=== PATIENT | female | born 1995 | race Caucasian/White ===

== ENCOUNTER 2018-02-24 12:14 | Emergency (ER) | payer OTHER ==
[2018-02-24 12:24] VITALS: BMI 19.5
[2018-02-24] MEDS ORDERED: METOCLOPRAMIDE HCL INJECTION 10 MG/2 ML VIAL IVPB ONE (13:06)
[2018-02-24] MEDS ORDERED: SODIUM CHLORIDE 0.9% 1000 ML INFUS.BAG IV ONE (13:06)
[2018-02-24] MEDS ORDERED: METOCLOPRAMIDE HCL INJECTION 10 MG/2 ML VIAL ONE (13:14)
[2018-02-24 13:20] LABS: BASO % 0.5 % (0-2.0); EOS % 0.2 % (0-4.5); HEMATOCRIT 37.4 % (32.4-45.2); HEMOGLOBIN 12.5 GM/dL (10.7-15.3); LYMPH % 8.3 % (8-40); MCH 27.7 pg (25.7-33.7); MCHC 33.5 g/dl (32.0-36.0); MEAN CELL VOLUME 82.5 fl (80-96); MEAN PLT VOLUME 8.9 fl (7.5-11.1); MONO % 4.9 % (3.8-10.2); NEUT % 86.1 % (42.8-82.8); PLATELET COUNT 187 K/MM3 (134-434); RBC 4.53 M/mm3 (3.60-5.2); RDW 13.3 % (11.6-15.6); WHITE BLOOD COUNT 9.6 K/mm3 (4.0-10.0)
[2018-02-24 14:06] LABS: URINE APPEARANCE CLOUDY; URINE BILIRUBIN NEGATIVE (<2.0 mg/dL); URINE BLOOD NEGATIVE (NEGATIVE); URINE COLOR DKYELLOW; URINE GLUCOSE (UA) NEGATIVE (NEGATIVE); URINE KETONE 2+ (NEGATIVE); URINE LEUK ESTERASE TRACE (NEGATIVE); URINE NITRITE NEGATIVE (NEGATIVE); URINE UROBILINOGEN NEGATIVE mg/dL (0.2-1.0)
[2018-02-24 14:09] LABS: URINE PROTEIN 2+ (NEGATIVE)
[2018-02-24 14:10] LABS: EPI CELLS FEW /HPF (FEW); URINE BACTERIA MODERATE /hpf (NONE SEEN); URINE MUCUS MANY
[2018-02-24 14:14] LABS: ALBUMIN 4.5 g/dl (3.4-5.0); ANION GAP 13 (8-16); BILIRUBIN,TOTAL 0.5 mg/dL (0.2-1.0); BLOOD UREA NITROGEN 8 mg/dL (7-18); CALCIUM 9.7 mg/dL (8.5-10.1); CHLORIDE 100 mmol/L (98-107); CO2 24 mmol/L (21-32); CREATININE 0.6 mg/dL (0.55-1.02); GLUCOSE,RANDOM 77 mg/dL (74-106); POTASSIUM 4.2 mmol/L (3.5-5.1); SGOT/AST 20 U/L (15-37); SGPT/ALT 26 U/L (12-78); SODIUM 137 mmol/L (136-145); TOT PROT 7.9 g/dl (6.4-8.2)
[2018-02-24 14:30] LABS: ALK PHOS 45 U/L (45-117)
--- NOTE | 2018-02-24 14:53 | PDOC ---
History of Present Illness <Lynn Izaguirre - Last Filed: 02/24/18 17:29> - General History Source: Patient Exam Limitations: No Limitations - History of Present Illness Initial Comments: 02/24/18 14:51 22-year-old female currently about 6 weeks with an LMP of January 09 here today complaining of intractable nausea and vomiting. Patient states she is vomiting daily too many times to count today was feeling lightheaded. Denies any abdominal pain no bleeding or loss of fluid no other complaints has been unable to tolerate any by mouth today is scheduled to follow up at the [facility] but has not had her first visit yet. No fevers chills was recently started on Keflex for a UTI she has been unable to take <Alejandra Vidales - Last Filed: 02/24/18 18:11> - General Chief Complaint: Nausea/Vomiting Stated Complaint: NAUSEA (2 MONTHS ) Past History <Lynn Izaguirre - Last Filed: 02/24/18 17:29> - Past Medical History Asthma: Yes COPD: No - Reproductive History Is Patient Now?: Yes (approx 6 wks) (#): 2 Para: 0 Spontaneous : 1 - Suicide/Smoking/Psychosocial Hx Smoking History: Never smoked Have you smoked in the past 12 months: No Information on smoking cessation initiated: No Hx Alcohol Use: No Drug/Substance Use Hx: No Substance Use Type: None <Alejandra Vidales - Last Filed: 02/24/18 18:11> - Past Medical History Allergies/Adverse Reactions: Allergies Allergy/AdvReac Type Severity Reaction Status Date / Time No Known Allergies Allergy Verified 02/19/18 02:58 Home Medications: Ambulatory Orders Cephalexin [Keflex] 500 mg PO BID 7 Days #13 capsule MDD 2 Tab 02/19/18 Vit 93/Iron Fum/Folic [ Formula Tablet] 1 each PO DAILY Metoclopramide HCl [Reglan] 10 mg PO TID PRN #20 tablet 02/24/18 Metoclopramide Oral Soln [Reglan *Liquid*] 10 mg PO TID PRN #120 udc MDD 3 doses 02/24/18 Review of Systems - Review of Systems Constitutional: No: Chills, Diaphoresis, Fever HEENTM: No: Eye Pain Respiratory: No: Orthopnea, Shortness of Breath Cardiac (ROS): No: Syncope ABD/GI: Yes: Vomiting. No: Diarrhea : No: Burning, Dysuria Musculoskeletal: No: Back Pain Integumentary: No: Bruising All Other Systems: Reviewed and Negative <Alejandra Vidales - Last Filed: 02/24/18 18:11> *Physical Exam - Vital Signs Last Vital Signs Temp Pulse Resp BP Pulse Ox 98.0 F 102 H 18 95/56 100 02/24/18 12:17 02/24/18 16:15 02/24/18 16:15 02/24/18 16:15 02/24/18 16:15 <Izaguirre,Giomilsy - Last Filed: 02/24/18 17:29> - Vital Signs Last Vital Signs Temp Pulse Resp BP Pulse Ox 98.0 F 120 H 18 109/64 100 02/24/18 12:17 02/24/18 12:17 02/24/18 12:17 02/24/18 12:17 02/24/18 12:17 - Physical Exam General Appearance: Yes: Nourished HEENT: positive: Normal ENT Inspection Respiratory/Chest: positive: Lungs Clear, Normal Breath Sounds. negative: Chest Tender Cardiovascular: positive: Regular Rhythm, Regular Rate, S1, S2 Gastrointestinal/Abdominal: positive: Normal Bowel Sounds, Flat, Soft. negative : Tender Extremity: positive: Normal Capillary Refill Integumentary: positive: Normal Color, Dry, Warm Neurologic: positive: Fully Oriented, Alert, Normal Mood/Affect <Alejandra Vidales - Last Filed: 02/24/18 18:11> ED Treatment Course - LABORATORY CBC & Chemistry Diagram: 02/24/18 13:08 02/24/18 13:08 - ADDITIONAL ORDERS Additional order review: Laboratory Results 02/24/18 02/24/18 13:42 13:08 Sodium 137 Potassium 4.2 Chloride 100 Carbon Dioxide 24 Anion Gap 13 BUN 8 Creatinine 0.6 Creat Clearance w eGFR > 60 Random Glucose 77 Calcium 9.7 Total Bilirubin 0.5 AST 20 ALT 26 Alkaline Phosphatase 45 Total Protein 7.9 Albumin 4.5 Beta HCG, Quant 982457.8 Urine Color Dkyellow Urine Appearance Cloudy Urine pH 7.0 Ur Specific [place] 1.024 Urine Protein 2+ H Urine Glucose (UA) Negative Urine Ketones 2+ H Urine Blood Negative Urine Nitrite Negative Urine Bilirubin Negative Urine Urobilinogen Negative Ur Leukocyte Esterase Trace Urine WBC (Auto) 8 Urine RBC (Auto) 4 Ur Epithelial Cells Few Urine Bacteria Moderate Urine Mucus Many 02/24/18 13:08 RBC 4.53 MCV 82.5 MCHC 33.5 RDW 13.3 MPV 8.9 Neutrophils % 86.1 H Lymphocytes % 8.3 D Monocytes % 4.9 Eosinophils % 0.2 Basophils % 0.5 - RADIOLOGY Radiograph Interpretation: 02/24/18 17:29 EXAM: Transvaginal US INTERPRETED BY: Dr. Hernandez REVIEWED BY: Dr. Vidales IMPRESSION: The uterus is retroverted and measures 9.7 x 7.0 x 5.8 cm. There is an intrauterine gestational sac containing pole and yolk sac. Mims-rump length of the pole measures 1.08 cm, which corresponds to an estimated gestational age of 7 weeks and 1 day. Average heart rate measures 143 bpm. The ovaries are normal size with arterial and venous flow. The right ovary measures 2.8 x 3.4 x 1.4 cm. The left ovary measures 2.0 x 1.8 x 1.3 cm. No free fluid identified in the cul-de- sac. SUMMARY: Single live intrauterine with biometry as above, concordant with dates utilizing the provided LMP. - Medications Given in the ED: ED Medications Discontinued Medications Generic Name Dose Route Start Last Admin Trade Name Freq PRN Reason Stop Dose Admin Metoclopramide HCl 10 mg 02/24/18 13:06 02/24/18 13:29 Reglan Injection - IVPB 02/24/18 13:07 10 mg ONCE ONE Administration Sodium Chloride 1,000 ml 02/24/18 13:06 02/24/18 13:29 Normal Saline - IV 02/24/18 13:07 1,000 ml ONCE ONE Administration <Lynn Izaguirre - Last Filed: 02/24/18 17:29> - LABORATORY CBC & Chemistry Diagram: 02/24/18 13:08 02/24/18 13:08 - ADDITIONAL ORDERS Additional order review: Laboratory Results 02/24/18 02/24/18 13:42 13:08 Sodium 137 Potassium 4.2 Chloride 100 Carbon Dioxide 24 Anion Gap 13 BUN 8 Creatinine 0.6 Creat Clearance w eGFR > 60 Random Glucose 77 Calcium 9.7 Total Bilirubin 0.5 AST 20 ALT 26 Alkaline Phosphatase 45 Total Protein 7.9 Albumin 4.5 Beta HCG, Quant 240685.8 Urine Color Dkyellow Urine Appearance Cloudy Urine pH 7.0 Ur Specific [place] 1.024 Urine Protein 2+ H Urine Glucose (UA) Negative Urine Ketones 2+ H Urine Blood Negative Urine Nitrite Negative Urine Bilirubin Negative Urine Urobilinogen Negative Ur Leukocyte Esterase Trace Urine WBC (Auto) 8 Urine RBC (Auto) 4 Ur Epithelial Cells Few Urine Bacteria Moderate Urine Mucus Many 02/24/18 13:08 RBC 4.53 MCV 82.5 MCHC 33.5 RDW 13.3 MPV 8.9 Neutrophils % 86.1 H Lymphocytes % 8.3 D Monocytes % 4.9 Eosinophils % 0.2 Basophils % 0.5 - RADIOLOGY Radiology Studies Ordered: Category Date Time Status TRANSVAGINAL US PREG [US] Stat Ultrasound 02/24/18 14:44 Ordered - Medications Given in the ED: ED Medications Discontinued Medications Generic Name Dose Route Start Last Admin Trade Name Freq PRN Reason Stop Dose Admin Metoclopramide HCl 10 mg 02/24/18 13:06 02/24/18 13:29 Reglan Injection - IVPB 02/24/18 13:07 10 mg ONCE ONE Administration Sodium Chloride 1,000 ml 02/24/18 13:06 02/24/18 13:29 Normal Saline - IV 02/24/18 13:07 1,000 ml ONCE ONE Administration <Alejandra Vidales - Last Filed: 02/24/18 18:11> Medical Decision Making - Medical Decision Making 02/24/18 15:55 differential: hyperemisis, dehydration, molar , acidosis, worsening uti , plan fluics, labs us tvus evaluate . antiemetics, trial po. if unable to tolerate PO. will admit. 02/24/18 17:24 lab unremarkable. TVUS with live IUP 7 weeks one day. yolk sac and pole. toleratling PO in ED. urine partially treated as pt has been on keflex. culture sent. will dc with rx for reglan to help nausea. and followup as scheduled. <Alejandra Vidales - Last Filed: 02/24/18 18:11> *DC/Admit/Observation/Transfer - Attestations Scribe Attestion: 03/28/18 17:30 Documentation prepared by Lynn Izaguirre, acting as medical imaging technician for Alejandra Vidales MD. <Lynn Izaguirre - Last Filed: 02/24/18 17:29> <Alejandra Vidales - Last Filed: 02/24/18 18:11> Diagnosis at time of Disposition: Hyperemesis, Dehydration - Discharge Dispostion Disposition: HOME Condition at time of disposition: Improved - Prescriptions Prescriptions: Metoclopramide HCl [Reglan] 10 mg PO TID PRN #20 tablet PRN Reason: Nausea Metoclopramide Oral Soln [Reglan *Liquid*] 10 mg PO TID PRN #120 udc MDD 3 doses PRN Reason: Nausea - Patient Instructions Printed Discharge Instructions: Hyperemesis Gravidarum, DI for Vomiting -- Adult Additional Instructions: you can take reglan 10 mg every 6 hrs as needed for vomiting or nausea. bland fluids, and solids. follow up with your document control assistant as scheduled. you are currently 7 weeks and 2 days based on todays ultrasound. return for any problems or concerns.
[2018-02-24 18:24] VITALS: BP 106/73; PULSE 89; TEMP 98.2
== END 2018-02-24 18:24 | disposition home or self-care (01) ==
LOC: JER 12:14
DX: O26.891 Other specified pregnancy related conditions, first trimester (principal); Z3A.01 Less than 8 weeks gestation of pregnancy; O21.0 Mild hyperemesis gravidarum; E86.0 Dehydration
CPT/HCPCS: 36415; 76817-TC; 80053; 81003; 81015; 84702; 85025; 87086; 99284-25; J7030

== ENCOUNTER 2018-03-21 09:38 | Emergency (ER) | payer OTHER ==
[2018-03-21 09:50] VITALS: TEMP 98.1; BMI 18.7
[2018-03-21 10:31] LABS: URINE APPEARANCE SLCLOUDY; URINE BILIRUBIN NEGATIVE (<2.0 mg/dL); URINE BLOOD 1+ (NEGATIVE); URINE COLOR YELLOW; URINE GLUCOSE (UA) NEGATIVE (NEGATIVE); URINE KETONE 1+ (NEGATIVE); URINE LEUK ESTERASE NEGATIVE (NEGATIVE); URINE NITRITE NEGATIVE (NEGATIVE)
[2018-03-21 10:32] LABS: URINE PROTEIN 1+ (NEGATIVE)
[2018-03-21 10:33] LABS: EPI CELLS RARE /HPF (FEW); URINE BACTERIA RARE /hpf (NONE SEEN); URINE HYALINE CAST 4 /lpf; URINE MUCUS MANY
[2018-03-21 10:34] LABS: BASO % 0.3 % (0-2.0); EOS % 0.8 % (0-4.5); HEMOGLOBIN 12.5 GM/dL (10.7-15.3); LYMPH % 10.8 % (8-40); MCH 28.2 pg (25.7-33.7); MCHC 33.8 g/dl (32.0-36.0); MEAN CELL VOLUME 83.5 fl (80-96); MEAN PLT VOLUME 8.5 fl (7.5-11.1); MONO % 4.7 % (3.8-10.2); NEUT % 83.4 % (42.8-82.8); PLATELET COUNT 164 K/MM3 (134-434); RBC 4.43 M/mm3 (3.60-5.2); WHITE BLOOD COUNT 8.9 K/mm3 (4.0-10.0)
--- NOTE | 2018-03-21 10:34 | PDOC ---
History of Present Illness - General Stated Complaint: SPOTTING (9 WKS ) - History of Present Illness Initial Comments: 03/21/18 10:26 22yo F (miscarriage 07/2017 @ 4 weeks), currently 9 weeks , asthma presents to the ED with 1 episode of vaginal spotting this morning. Reports she saw dark red blood in her underwear when she woke up, no bleeding since. She denies abd pain, N/V, dizziness. She was concerned because she does not want to have a miscarriage, although last time reports she had much more bleeding and cramping. Denies headache, CP, SOB. Denies dysuria, frequency, urgency, F/C. Has first OB appt 03/25. Past History - Past Medical History Allergies/Adverse Reactions: Allergies Allergy/AdvReac Type Severity Reaction Status Date / Time No Known Allergies Allergy Verified 03/21/18 09:48 Home Medications: Ambulatory Orders Vit 93/Iron Fum/Folic [ Formula Tablet] 1 each PO DAILY Asthma: Yes COPD: No Other medical history: miscarriage 08/17 at 4 weeks - Reproductive History Is Patient Now?: Yes (9 weeks) (#): 2 Para: 0 Spontaneous : 1 - Suicide/Smoking/Psychosocial Hx Smoking History: Never smoked Have you smoked in the past 12 months: No Hx Alcohol Use: No Drug/Substance Use Hx: No Substance Use Type: None Review of Systems - Review of Systems Comments:: 03/21/18 10:41 GENERAL/CONSTITUTIONAL: No fever or chills. No weakness. HEAD, EYES, EARS, NOSE AND THROAT: No change in vision. No ear pain or discharge. No sore throat. GASTROINTESTINAL: No nausea, vomiting, diarrhea or constipation. GENITOURINARY: No dysuria, frequency, or change in urination. +vaginal spotting CARDIOVASCULAR: No chest pain or shortness of breath. RESPIRATORY: No cough, wheezing, or hemoptysis. MUSCULOSKELETAL: No joint or muscle swelling or pain. No neck or back pain. SKIN: No rash NEUROLOGIC: No headache, vertigo, loss of consciousness, or change in strength/ sensation. ENDOCRINE: No increased thirst. No abnormal weight change. HEMATOLOGIC/LYMPHATIC: No anemia, easy bleeding, or history of blood clots. ALLERGIC/IMMUNOLOGIC: No hives or skin allergy. *Physical Exam - Vital Signs Last Vital Signs Temp Pulse Resp BP Pulse Ox 98.1 F 107 H 20 118/62 100 03/21/18 09:45 03/21/18 09:45 03/21/18 09:45 03/21/18 09:45 03/21/18 09:45 - Physical Exam Comments: 03/21/18 10:41 GENERAL: Awake, alert, and fully oriented, in no acute distress HEAD: No signs of trauma EYES: PERRLA, EOMI, sclera anicteric, conjunctiva clear ENT: Auricles normal inspection, hearing grossly normal, nares patent, oropharynx clear without exudates. Moist mucosa NECK: Normal ROM, supple, no lymphadenopathy, JVD, or masses LUNGS: Breath sounds equal, clear to auscultation bilaterally. No wheezes, and no crackles HEART: Regular rate and rhythm, normal S1 and S2, no murmurs, rubs or gallops ABDOMEN: Soft, nontender, normoactive bowel sounds. No guarding, no rebound. No masses IN FILE OPERATOR: Normal external genitalia, +dark blood in vaginal vault, os is closed, no midline or adnexal ttp EXTREMITIES: Normal range of motion, no edema. No clubbing or cyanosis. No cords, erythema, or tenderness NEUROLOGICAL: Normal speech, cranial nerves intact, negative pronator drift, 5/ 5 strength in all 4 extremities, normal sensation to light touch in all 4 extremities, normal cerebellar exam, normal gait, normal reflexes and tone SKIN: Warm, Dry, normal turgor, no rashes or lesions noted. ED Treatment Course - LABORATORY CBC & Chemistry Diagram: 03/21/18 10:15 03/21/18 10:15 Medical Decision Making - Medical Decision Making 03/21/18 10:44 22-year-old female presents emergency Department with vaginal spotting. Vitals initially with tachycardia to 106, on my exam heart rate 94. Pelvic exam with closed os and dark blood in vaginal vault. Likely threatened . Will check labs, urinalysis and transvaginal ultrasound and reassess. 03/21/18 12:59 No further bleeding in ED. Labs wnl. US with intrauterine 11 week preg with FHR 176. B HCG pretty elevated for estimated age - no evidence molar preg on US. Discussed with patient that this must be repeated during her scheduled visit on 03/25 with OB. Blood type is O-, pt given rhogam, discussed with pt any time she bleeds or has any trauma she needs O-. She expressed understanding. Rpt vitals wnl. UA with some bacteria, will treat with macrobid (prev cx neg). UCx pending. Pt feels well, requests DC home. I discussed the physical exam findings, ancillary test results and final diagnoses with the patient. I answered all of the patient's questions. The patient was satisfied with the care received and felt comfortable with the discharge plan and treatment plan. The patient will call their primary care physician within 24 hours to arrange follow-up and will return to the Emergency Department with any new, persistent or worsening symptoms. *DC/Admit/Observation/Transfer Diagnosis at time of Disposition: Threatened - Discharge Dispostion Disposition: HOME Condition at time of disposition: Stable Admit: No - Referrals Referrals: Shanae Putnam MD [Primary Care Provider] - - Patient Instructions Printed Discharge Instructions: DI for Threatened Additional Instructions: As discussed, follow-up with your OB doctor on March 25 as scheduled. Make sure your OB doctor repeats your beta hCG levels at that time as they were elevated in the emergency department. Take your antibiotics as prescribed. Return to the emergency department if you have any new, worsening or concerning symptoms. - Post Discharge Activity - Attestations Physician Attestion: 03/21/18 13:12 I, Dr. Eve Batista MD, attest that this document has been prepared under my direction and personally reviewed by me in its entirety. I further attest, that it accurately reflects all work, treatment, procedures and medical decision -making performed by me.
[2018-03-21 10:39] LABS: INR 1.05 (0.82-1.09); PROTHROMBIN TIME (PATIENT) 11.9 SEC (9.98-11.88)
[2018-03-21 10:42] LABS: ACTIVATED PTT 24.6 SECONDS (26.9-34.4)
[2018-03-21 10:56] LABS: ALBUMIN 4.2 g/dl (3.4-5.0); ANION GAP 11 (8-16); BILIRUBIN,TOTAL 0.3 mg/dL (0.2-1.0); BLOOD UREA NITROGEN 5 mg/dL (7-18); CALCIUM 9.7 mg/dL (8.5-10.1); CHLORIDE 103 mmol/L (98-107); CO2 24 mmol/L (21-32); CREATININE 0.6 mg/dL (0.55-1.02); GLUCOSE,RANDOM 81 mg/dL (74-106); POTASSIUM 3.6 mmol/L (3.5-5.1); SGOT/AST 25 U/L (15-37); SGPT/ALT 35 U/L (12-78); SODIUM 138 mmol/L (136-145)
[2018-03-21 10:59] LABS: ALK PHOS 41 U/L (45-117)
[2018-03-21] MEDS ORDERED: RHO(D) IMMUNE GLOBULIN 1,500 UNIT DISP.SYRIN IM ONE (12:28)
[2018-03-21 13:07] VITALS: BP 108/73; PULSE 89
== END 2018-03-21 13:44 | disposition home or self-care (01) ==
LOC: JER 09:38
PROC: 3E0234Z Introduction of Serum, Toxoid and Vaccine into Muscle, Percutaneous Approach (ICD-10-PCS; principal; 2018-03-21)
DX: O26.891 Other specified pregnancy related conditions, first trimester (principal); O20.0 Threatened abortion; Z3A.11 11 weeks gestation of pregnancy; O36.0910 Maternal care for other rhesus isoimmunization, first trimester, not applicable or unspecified
CPT/HCPCS: 36415; 76801-TC; 80053; 81003; 81015; 84702; 85025; 85610; 85730; 86850; 86900; 86901; 86999; 87086; 96372; 99283-25; J1561

== ENCOUNTER 2018-05-14 06:43 | Emergency (ER) | payer OTHER ==
[2018-05-14 06:46] VITALS: BMI 27.4
[2018-05-14] MEDS ORDERED: ACETAMINOPHEN 325 MG TABLET (FP) PO ONE (07:21)
--- NOTE | 2018-05-14 07:24 | PDOC ---
History of Present Illness - General Chief Complaint: Back Pain Stated Complaint: BACK PAIN,4 MONTHS Time Seen by Provider: 05/14/18 07:06 History Source: Patient Exam Limitations: No Limitations - History of Present Illness Initial Comments: The patient is a 22 year old female A1 (currently 17 weeks , miscarrage 08/16) with a past medical history of scoliosis, asthma, and allergies who presents to the Emergency department with right flank/back pain for 2 days. The patient reports that her pain began yesterday and has been progressively worsening. She describes her back pain as intermitent 8/10 in severity with exacerbating episodes lasting 1-2 minutes. The patient reports that her pain is exacerbated when walking and notes that she has been walking more recently to maintain a healthy pregancy. She reports that her current pain feels similar to the pain she experiences secondary to her scoliosis. She denies numbness and tingling of her extremities. She denies any chest pain, cough, sob, n/v. She denies fever, chills, nausea, vomiting. She denies diarrhea, dysuria, and vaginal bleeding or discharge Past History - Past Medical History Allergies/Adverse Reactions: Allergies Allergy/AdvReac Type Severity Reaction Status Date / Time seafood Allergy Uncoded 05/14/18 06:45 Home Medications: Ambulatory Orders Vit 93/Iron Fum/Folic [ Formula Tablet] 1 each PO DAILY Albuterol Sulfate Inhaler - [Ventolin HFA Inhaler -] 1 - 2 inh IH Q4H PRN Fluticasone Propionate [Flovent Diskus] 100 mcg IH BID 05/14/18 Montelukast Na [Singulair -] 10 mg PO HS 05/14/18 Asthma: Yes COPD: No Other medical history: O neg blood type - Reproductive History (#): 2 Para: 0 Spontaneous : 1 - Suicide/Smoking/Psychosocial Hx Smoking History: Never smoked Have you smoked in the past 12 months: No Information on smoking cessation initiated: No Hx Alcohol Use: No Drug/Substance Use Hx: No Substance Use Type: None Review of Systems - Review of Systems Able to Perform ROS?: Yes Comments:: CONSTITUTIONAL: No reported: Fever, Chills, Diaphoresis, Generalized Weakness, Malaise, Loss of Appetite HEENT: No reported: Rhinorrhea, Nasal Congestion, Throat Pain, Throat Swelling, Difficulty Swallowing, Mouth Swelling, Ear Pain, Eye Pain, Visual Changes CARDIOVASCULAR: No reported: Chest Pain, Syncope, Palpitations, Irregular Heart Rate, Lightheadedness, Peripheral Edema RESPIRATORY: No reported: Cough, Shortness of Breath, SOB with Exertion, Orthopnea, Wheezing , Stridor, Hemoptysis GASTROINTESTINAL: No reported: Abdominal pain, Abdominal Distension, Nausea, Vomiting, Diarrhea, Constipation, Melena, Hematochezia GENITOURINARY: No reported: Dysuria, Frequency, Urgency, Hesitancy, Flank Pain, Genital Pain MUSCULOSKELETAL: (+) Right flank/back pain. No reported: Arthralgia, Joint Swelling, Neck Pain SKIN: No reported: Rash, Itching, Pallor HEMEATOLOGIC/IMMUNOLOGIC: No reported: Easy Bleeding, Easy Bruising, Lymphadenopathy, Frequent infections ENDOCRINE: No reported: Unexplained Weight Gain, Unexplained Weight Loss, Heat Intolerance , Cold Intolerance NEUROLOGIC: No reported: Headache, Focal Weakness, Paresthesias, Vertigo, Lightheadedness, Unsteady Gait, Seizure, Mental Status Changes, Incontinence PSYCHIATRIC: No reported: Anxiety, Depression *Physical Exam - Vital Signs Last Vital Signs Temp Pulse Resp BP Pulse Ox 98.5 F 87 20 112/71 100 05/14/18 06:45 05/14/18 06:45 05/14/18 06:45 05/14/18 06:45 05/14/18 06:45 - Physical Exam Comments: GENERAL: The patient is awake, alert, and fully oriented, Nontoxic - in no acute distress. HEAD: Normocephalic, atraumatic. EYES: extraocular movements intact, sclera anicteric, conjunctiva clear. ENT: Normal voice, Moist mucous membranes. NECK: Normal range of motion, supple LUNGS: Breath sounds equal, clear to auscultation bilaterally. No wheezes, no rhonchi, no rales. HEART: Regular rate and rhythm, without murmur, rub or gallop. ABDOMEN:Soft, nontender, +gravid abdomen to umbilicus, EXTREMITIES: Normal range of motion, no edema. BACK: mild tenderness to the L lumbar tenderness NEUROLOGICAL: No facial assymetry, Normal speech, PSYCH: Normal mood, normal affect. SKIN: Warm, Dry, normal turgor, Medical Decision Making - Medical Decision Making 05/14/18 07:22 22y F no pmhx at 17 weeks gestation presents with complaint of R flank pain radiating down the back/groin that is intermittent lasting approx 1-2 min before remitting and seems exacerbated by movements without n/v, f/c, hematuria , dysuria, diarrhea, vag bleeding, numbness/tingling/weakness. pt seeing [facility] lim for care, has prior confirmatory US on exam pt in no distress with mild reproducible tenderness on her R lower back suspect msk, consider possible kidney stones will give tylenol will ck UA to r/o hematuria 05/14/18 08:51 The patient's UA is negative for blood suspect her pain secondary to muscle spasm Will have the patient any Tylenol, heat for her sore muscles. Rest for the next several days I discussed the physical exam findings, ancillary test results and final diagnoses with the patient. I answered all of the patient's questions. The patient was satisfied with the care received and felt comfortable with the discharge plan and treatment plan. The patient will call their primary care physician within 24 hours to arrange follow-up and will return to the Emergency Department with any new, persistent or worsening symptoms. A portion of this note was documented by scribe services under my direction. I have reviewed the details of the note, within reason, and agree with the documentation with the following case summary and management plan written by me *DC/Admit/Observation/Transfer Diagnosis at time of Disposition: Back spasm - Discharge Dispostion Disposition: HOME Condition at time of disposition: Improved Decision to Admit order: No - Referrals Referrals: Shanae Putnam MD [Primary Care Provider] - Charlotte Cates MD [Certified Nurse Planner Intern] - - Patient Instructions Printed Discharge Instructions: DI for Low Back Pain Additional Instructions: Return to the emergency department immediately with ANY new, persistent or worsening symptoms including fever/chills, vomiting, worsening pain, numbness/ tingling/ewakness or any other concerns. I suspect your back pain is due to spasms. Take tylenol for pain, use heat for your sore back. You MUST call and follow up with your doctor in 3-4 days for further evaluation of your symptoms. Results were discussed with you. Please make sure your doctor reviews the results of your emergency evaluation. Print Language: YI - Post Discharge Activity
[2018-05-14 08:02] LABS: URINE APPEARANCE SLCLOUDY; URINE BILIRUBIN NEGATIVE (<2.0 mg/dL); URINE BLOOD NEGATIVE (NEGATIVE); URINE COLOR LTYELLOW; URINE GLUCOSE (UA) NEGATIVE (NEGATIVE); URINE KETONE NEGATIVE (NEGATIVE); URINE LEUK ESTERASE TRACE (NEGATIVE); URINE NITRITE NEGATIVE (NEGATIVE); URINE PROTEIN NEGATIVE (NEGATIVE); URINE UROBILINOGEN NEGATIVE mg/dL (0.2-1.0)
[2018-05-14 08:03] LABS: EPI CELLS FEW /HPF (FEW); URINE BACTERIA RARE /hpf (NONE SEEN); URINE MUCUS RARE
[2018-05-14 08:47] VITALS: BP 98/58; TEMP 97.9
[2018-05-14 09:01] VITALS: PULSE 90
== END 2018-05-14 09:15 | disposition home or self-care (01) ==
LOC: JER 06:43
DX: O26.892 Other specified pregnancy related conditions, second trimester (principal); O99.89 Other specified diseases and conditions complicating pregnancy, childbirth and the puerperium; M62.830 Muscle spasm of back; Z3A.17 17 weeks gestation of pregnancy
CPT/HCPCS: 81003; 81015; 87086; 99282-25

== ENCOUNTER 2018-09-21 14:30 | Inpatient (IN) | payer OTHER ==
[2018-09-21] MEDS: DEXTROSE 5%-LACTATED RINGERS 1,000 ML IV SCH (15:00)
[2018-09-21] MEDS ORDERED: AMPICILLIN SODIUM 2 GM VIAL ONE (15:01)
[2018-09-21] MEDS ORDERED: AMPICILLIN - 2 GM in SODIUM CHLORIDE 100 ML IVPB ONE (15:30)
[2018-09-21 15:44] VITALS: BMI 21.1
[2018-09-21] MEDS ORDERED: BUTORPHANOL TARTRATE 1 MG/ML VIAL IVPUSH ONE (16:30)
[2018-09-21] MEDS ORDERED: PROMETHAZINE HCL 25 MG/1 ML VIAL IVPB ONE (16:30)
[2018-09-21 17:41] LABS: INR 0.93 (0.83-1.09)
[2018-09-21 17:44] LABS: ACTIVATED PTT 23.3 SECONDS (25.2-36.5)
[2018-09-21 17:57] LABS: ANION GAP 9 MMOL/L (8-16); BLOOD UREA NITROGEN 7 mg/dL (7-18); CALCIUM 8.4 mg/dL (8.5-10.1); CHLORIDE 107 mmol/L (98-107); CO2 25 mmol/L (21-32); CREATININE 0.5 mg/dL (0.55-1.3); GLUCOSE,RANDOM 66 mg/dL (74-106); POTASSIUM 4.2 mmol/L (3.5-5.1); SODIUM 141 mmol/L (136-145)
[2018-09-21 18:08] LABS: BASO % 0.3 % (0-2.0); EOS % 0.3 % (0-4.5); HEMATOCRIT 32.1 % (32.4-45.2); HEMOGLOBIN 10.4 GM/dL (10.7-15.3); LYMPH % 10.4 % (8-40); MCH 25.8 pg (25.7-33.7); MCHC 32.3 g/dl (32.0-36.0); MEAN PLT VOLUME 8.9 fl (7.5-11.1); MONO % 5.5 % (3.8-10.2); NEUT % 83.5 % (42.8-82.8); PLATELET COUNT 173 K/MM3 (134-434); RBC 4.01 M/mm3 (3.60-5.2); RDW 14.4 % (11.6-15.6); WHITE BLOOD COUNT 9.5 K/mm3 (4.0-10.0)
[2018-09-21] MEDS: AMPICILLIN - 1 GM in SODIUM CHLORIDE 100 ML IVPB SCH (19:30)
[2018-09-21] MEDS ORDERED: AMPICILLIN SODIUM 1 GM VIAL ONE ×2 (19:53→23:41)
[2018-09-21] MEDS ORDERED: FENTANYL/BUPIVACAINE/NS/PF - PCEA - 50 ML DISP.SYRIN EP ONE (20:48)
[2018-09-21] MEDS: FENTANYL/BUPIVACAINE/NS/PF - PCEA - 50 ML DISP.SYRIN EP SCH (21:15)
[2018-09-21] MEDS ORDERED: NALOXONE HCL 0.4 MG/ML VIAL IVPUSH PRN (21:29)
--- NOTE | 2018-09-21 22:27 | HP ---
Past Medical History - Admission Chief Complaint: contractions History of Present Illness: patient History Source: Patient Limitations to Obtaining History: No Limitations - Past Medical History Pulmonary: Yes: Asthma ...: 2 ...Para: 0 ...Term: 0 ...: 0 ...Spon : 1 ...Induced : 0 ...Multiple Gestation: 0 ...LMP: 01/11/18 ... Weeks Gestation by Dates: 37.2 ...EDC by [facility]: 10/10/18 - Past Surgical History Past Surgical History: Yes: None Hx Myomectomy: No Hx Transabdominal Cerclage: No - Smoking History Smoking history: Never smoked Have you smoked in the past 12 months: No - Alcohol/Substance Use Hx Alcohol Use: No History of Substance Use: reports: None Home Medications - Allergies Allergies/Adverse Reactions: Allergies Allergy/AdvReac Type Severity Reaction Status Date / Time shellfish derived Allergy Severe Swelling Verified 09/21/18 15:06 seafood Allergy Severe Swelling Uncoded 09/21/18 15:06 - Home Medications Home Medications: Ambulatory Orders Albuterol Sulfate Inhaler - [Ventolin HFA Inhaler -] 1 - 2 inh IH Q4H PRN Montelukast Na [Singulair -] 10 mg PO HS 09/10/18 Vit Calc,Iron,Folic [ Vitamins] 1 each PO DAILY 09/10/18 Family Disease History - Family Disease History Family History: Unremarkable Review of Systems - Review of Systems Constitutional: reports: No Symptoms Eyes: reports: No Symptoms HENT: reports: No Symptoms Neck: reports: No Symptoms Cardiovascular: reports: No Symptoms Respiratory: reports: No Symptoms Gastrointestinal: reports: No Symptoms Genitourinary: reports: Pain Breasts: reports: No Symptoms Reported Musculoskeletal: reports: No Symptoms Integumentary: reports: No Symptoms Neurological: reports: No Symptoms Endocrine: reports: No Symptoms Hematology/Lymphatic: reports: No Symptoms Physical Exam - Maternity Vital Signs: Vital Signs Temperature 98.1 F 09/21/18 22:00 Pulse Rate 88 09/21/18 21:25 Respiratory Rate 18 09/21/18 21:25 Blood Pressure 105/68 09/21/18 21:25 O2 Sat by Pulse Oximetry (%) 100 09/21/18 21:25 Constitutional: Yes: Well Nourished, No Distress, Calm Eyes: Yes: WNL, Conjunctiva Clear, EOM Intact HENT: Yes: WNL, Atraumatic, Normocephalic Neck: Yes: WNL, Supple, Trachea Midline Cardiovascular: Yes: WNL, Regular Rate and Rhythm Breast(s): Yes: WNL - Abdominal Exam/OB Fundal Height: 37 Number of Fetuses: Single Presentation: Vertex Regularity: Regular Intensity: Moderate Monitor Mode: External Category: I Accelerations: Uniform Decelerations: None - Vaginal Exam/OB Vaginal Bleediing: No Amniotic Membrane Status: Ruptured - Physical Exam Musculoskeletal: Yes: WNL Extremities: Yes: WNL - Labs Lab Results: CBC, BMP 09/21/18 16:00 09/21/18 16:00 Hemorrhage Risk Assessment - Risk Factors Medium Risk Factors: Yes: None High Risk Factors: Yes: None Risk Score: 1 Risk Level: Medium Risk Problem List - Problems (1) Labor and delivery indication for care or intervention Assessment/Plan: [id number] at term in labor admit to labor and delivery pain management as needed anticipate Dr. Campbell Code(s): O75.9 - COMPLICATION OF LABOR AND DELIVERY, UNSPECIFIED
[2018-09-21] MEDS ORDERED: BUPIVACAINE HCL/PF 0.25% (2.5MG/ML) 10 ML VIAL ONE (22:59)
[2018-09-21] MEDS ORDERED: LIDOCAINE HCL 1% PRESERVATIVE FREE - 30ML VIAL ONE (23:46)
[2018-09-21] MEDS ORDERED: OXYTOCIN 20 UNITS in 0.9% NS 20 UNIT/1,000 ML INFUS.BAG IV ONE (23:46)
--- NOTE | 2018-09-21 23:46 | PN ---
Progress Note, Labor Vaginal Exam #1 Labor Exam Date: 09/21/18 Labor Exam Time: 23:46 Heart Rate (range): 130 mod teresa +accel no decels Dilatation: 10 Effacement (%): 100 Amniotic Membrane Status: Ruptured Presentation: Vertex/Position Station: +2 (pt at term in active labor anticipate )
--- NOTE | 2018-09-21 23:47 | DS ---
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: Vital Signs Temperature 98.9 F 09/21/18 23:00 Pulse Rate 80 09/21/18 23:15 Respiratory Rate 18 09/21/18 23:15 Blood Pressure 95/58 L 09/21/18 23:15 O2 Sat by Pulse Oximetry (%) 100 09/21/18 23:15 Constitutional: Yes: Well Nourished, No Distress, Calm Eyes: Yes: WNL, Conjunctiva Clear, EOM Intact HENT: Yes: WNL, Atraumatic, Normocephalic Neck: Yes: WNL, Supple, Trachea Midline Cardiovascular: Yes: WNL, Regular Rate and Rhythm Respiratory: Yes: WNL, Regular, CTA Bilaterally Gastrointestinal: Yes: WNL ...Rectal Exam: Yes: WNL Renal/: Yes: WNL Breast(s): Yes: WNL Musculoskeletal: Yes: WNL Extremities: Yes: WNL Integumentary: Yes: WNL Neurological: Yes: WNL, Alert, Oriented ...Motor Strength: WNL Psychiatric: Yes: WNL, Alert, Oriented Labs: CBC, BMP 09/21/18 16:00 09/21/18 16:00 Delivery - Delivery Vaginal Delivery: No Problems Episiotomy/Laceration: None Delivery, Single - Stages of Labor Placenta: Yes: Spontaneous - 1 Minute Total Score: 9 5 Minutes Total Score: 9 - [place] Feeding Plan Initial Plan: Elected not to breastfeed exclusively throughout hospitalization Discharge Summary Reason For Visit: LABOR Current Active Problems Labor and delivery indication for care or intervention (Acute) - Instructions Diet, Activity, Other Instructions: Physical activity Resume your normal everyday activity as tolerated no heavy lifting or exercise until seen by your surgeon. You may walk unlimited sharmin of and climb stairs. You may resume driving the car when you feel safe and comfortable behind the wheel. No sexual activity as instructed. Wound care If you have a bandage, leave it on, and keep dry for 48-72 hours. After that time discard the outer bandage. If they are tapes on the skin under the out of bandage leave them in place. They will peel off in the next 7 to 10 days. Do Not Peel them off. You may shower the day after surgery. If there are tapes present on the skin, you may shower over them. Diet There are no dietary restrictions. Eat healthy, high-fiber foods. Drink 6 to 8 glasses of liquid each day. This will assist in keeping your bowels are regular. Pain management You may take Tylenol or acetaminophen or Ibuprofen (for example, Motrin, Advil etc.) from my pain prescription medication is ordered should be taken as prescribed for moderate to severe pain. Call MD for any of the following: Severe pain not relieved by medication Fever of 101 or higher Excessive bleeding or drainage on dressing Inability to urinate Disposition: HOME - Home Medications Comprehensive Discharge Medication List: Ambulatory Orders Albuterol Sulfate Inhaler - [Ventolin HFA Inhaler -] 1 - 2 inh IH Q4H PRN Montelukast Na [Singulair -] 10 mg PO HS 09/10/18 Vit Calc,Iron,Folic [ Vitamins] 1 each PO DAILY 09/10/18
--- NOTE | 2018-09-22 00:30 | PN ---
Delivery - Delivery Vaginal Delivery: Spontaneous Type of Anesthesia: Epidural Episiotomy/Laceration: Perineal Extension/lac, 1st degree EBL (cc): 500 Delivery, Single - Stages of Labor Placenta: Yes: Spontaneous - Condition of Infant Gender: Male Position: Left, OA - [place] Feeding Plan Initial Plan: Elected not to breastfeed exclusively throughout hospitalization Remarks - Remarks Remarks: Patient fully dilated and pushing delivered viable male from [place]MA compound cephalic presentation over intact perineum. Nuchal cord x1 easily reduced. Anterior shoulder and body delivered spontaneously and without difficulty. Nose and mouth suctioned with bulb suction. Placenta delivered intact with 3vc. 1st degree laceration repaired with 2.0 vicryl with excellent hemostasis and denominational of anatomy. Fundus firm. Vault empty.
[2018-09-22] MEDS ORDERED: BENZOCAINE 28 GM HEMORRHOIDAL OINTMENT TP PRN (00:31)
[2018-09-22] MEDS ORDERED: BISACODYL 10 MG SUPP.RECT RC PRN (00:31)
[2018-09-22] MEDS ORDERED: WITCH HAZEL 50% (TUCKS) 40 PAD/JAR PAD TP PRN (00:31)
[2018-09-22] MEDS ORDERED: METHYLERGONOVINE MALEATE 0.2 MG/1 ML AMP IM PRN (00:31)
[2018-09-22] MEDS ORDERED: BENZOCAINE 20% 57 GM BOTTLE TP PRN (00:31)
[2018-09-22] MEDS ORDERED: OXYTOCIN 20 UNITS in 0.9% NS 20 UNIT/1,000 ML INFUS.BAG IV SCH (00:45)
[2018-09-22] MEDS ORDERED: OXYTOCIN 20 UNITS in 0.9% NS 20 UNIT/1,000 ML INFUS.BAG IV ONE (01:11)
[2018-09-22] MEDS: AMPICILLIN - 1 GM in SODIUM CHLORIDE 100 ML IVPB SCH ×2 (07:17→07:18)
[2018-09-22] MEDS: FERROUS SO4 325 MG TABLET (FP) PO SCH ×4 (08:00→17:52)
[2018-09-22] MEDS: PRENATAL VITAMINS W/ FOLIC ACID TABLET (FP) PO SCH ×2 (10:13→10:15)
[2018-09-22] MEDS: ACETAMINOPHEN 325 MG TABLET (FP) PO PRN (18:28)
[2018-09-22] MEDS: IBUPROFEN 600 MG TABLET (FP) PO PRN (18:29)
[2018-09-22] MEDS: FENTANYL/BUPIVACAINE/NS/PF - PCEA - 50 ML DISP.SYRIN EP SCH (22:56)
[2018-09-23 07:31] LABS: BASO % 0.2 % (0-2.0); EOS % 0.7 % (0-4.5); HEMATOCRIT 21.6 % (32.4-45.2); LYMPH % 23.4 % (8-40); MCH 25.8 pg (25.7-33.7); MCHC 32.3 g/dl (32.0-36.0); MEAN CELL VOLUME 79.9 fl (80-96); NEUT % 69.7 % (42.8-82.8); PLATELET COUNT 122 K/MM3 (134-434); RBC 2.71 M/mm3 (3.60-5.2); RDW 14.3 % (11.6-15.6); WHITE BLOOD COUNT 7.1 K/mm3 (4.0-10.0)
[2018-09-23] MEDS: IBUPROFEN 600 MG TABLET (FP) PO PRN ×2 (07:48→21:53)
[2018-09-23] MEDS: ACETAMINOPHEN 325 MG TABLET (FP) PO PRN ×2 (07:49→21:52)
--- NOTE | 2018-09-23 08:14 | PN ---
Post Progress Note Type of Delivery: Vital Signs: Vital Signs Temperature 97.8 F 09/22/18 22:01 Pulse Rate 91 H 09/22/18 22:01 Respiratory Rate 14 09/22/18 22:01 Blood Pressure 100/58 L 09/22/18 22:01 O2 Sat by Pulse Oximetry (%) 98 09/22/18 22:01 Uterus: Yes: Fundus Firm Abdomen/GI: Yes: Abdomen soft Lochia: Yes: Rubra Lochia, amount: Small Extremities: Yes: Calves non-tender Activity: Ambulating - Labs Labs: CBC WBC 7.1 K/mm3 (4.0-10.0) 09/23/18 07:00 RBC 2.71 M/mm3 (3.60-5.2) L 09/23/18 07:00 Hgb 7.0 GM/dL (10.7-15.3) L 09/23/18 07:00 Hct 21.6 % (32.4-45.2) L D 09/23/18 07:00 MCV 79.9 fl (80-96) L 09/23/18 07:00 MCH 25.8 pg (25.7-33.7) 09/23/18 07:00 MCHC 32.3 g/dl (32.0-36.0) 09/23/18 07:00 RDW 14.3 % (11.6-15.6) 09/23/18 07:00 Plt Count 122 K/MM3 (134-434) L D 09/23/18 07:00 MPV 8.0 fl (7.5-11.1) D 09/23/18 07:00 Absolute Neuts (auto) 5.0 K/mm3 (1.5-8.0) 09/23/18 07:00 Neutrophils % 69.7 % (42.8-82.8) 09/23/18 07:00 Lymphocytes % 23.4 % (8-40) D 09/23/18 07:00 Monocytes % 6.0 % (3.8-10.2) 09/23/18 07:00 Eosinophils % 0.7 % (0-4.5) D 09/23/18 07:00 Basophils % 0.2 % (0-2.0) 09/23/18 07:00 Nucleated RBC % 0 % (0-0) 09/23/18 07:00 Assessment/Plan 23yo s/p , PPD#1 Routine PP care OOB, ambulate Labs reviewed; anemia. Iron TID D/C to home tomorrow Hiro Bullock MD
[2018-09-23] MEDS: FERROUS SO4 325 MG TABLET (FP) PO SCH ×3 (09:00→18:09)
[2018-09-23] MEDS ORDERED: PNEUMOC 13-VAL CONJ-DIP CRM/PF 0.5 ML DISP.SYRIN IM ONE (10:00)
[2018-09-23] MEDS ORDERED: DIPHTH,PERTUSS(ACELL),TET 0.5 ML DISP.SYRIN IM ONE (10:00)
[2018-09-23] MEDS ORDERED: PNEUMOCOCCAL 23 VACCINE 0.5 ML VIAL IM ONE (10:00)
[2018-09-23] MEDS: PRENATAL VITAMINS W/ FOLIC ACID TABLET (FP) PO SCH (10:11)
[2018-09-23] MEDS: DEXTROSE 5%-LACTATED RINGERS 1,000 ML IV SCH (20:16)
[2018-09-23] MEDS ORDERED: SENNOSIDES/DOCUSATE COMBO (SENNA PLUS) TABLET (UD) PO PRN (22:00)
--- NOTE | 2018-09-24 07:56 | DS ---
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 Signs: Vital Signs Temperature 98.6 F 09/23/18 21:00 Pulse Rate 97 H 09/23/18 21:00 Respiratory Rate 22 H 09/23/18 21:00 Blood Pressure 101/58 L 09/23/18 21:00 O2 Sat by Pulse Oximetry (%) 100 09/23/18 21:00 Constitutional: Yes: Well Nourished, No Distress, Calm Eyes: Yes: WNL, Conjunctiva Clear, EOM Intact HENT: Yes: WNL, Atraumatic, Normocephalic Neck: Yes: WNL, Supple, Trachea Midline Cardiovascular: Yes: WNL, Regular Rate and Rhythm Respiratory: Yes: WNL, Regular, CTA Bilaterally Gastrointestinal: Yes: WNL ...Rectal Exam: Yes: WNL Renal/: Yes: WNL ....Post : Yes: Uterus firm, Uterus non-tender, Slight lochia rubra Breast(s): Yes: WNL Musculoskeletal: Yes: WNL Extremities: Yes: WNL Edema: No Integumentary: Yes: WNL Neurological: Yes: WNL, Alert, Oriented ...Motor Strength: WNL Psychiatric: Yes: WNL, Alert, Oriented Labs: CBC, BMP 09/23/18 07:00 09/21/18 16:00 Delivery - Delivery Vaginal Delivery: Spontaneous Type of Anesthesia: Epidural Episiotomy/Laceration: Perineal Extension/lac, 1st degree EBL (cc): 500 Delivery, Single - Stages of Labor Date 1st Stage Initiatied: 09/21/18 Time 1st Stage Initiated: 12:00 Date 2nd Stage Initiated: 09/21/18 Time 2nd Stage Initiated: 23:45 Date of Delivery: 09/22/18 Time of Delivery: 00:10 Time Placenta Delivered: 00:12 Placenta: Yes: Spontaneous - Condition of Body 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 You may walk unlimited sharmin of and climb stairs. You may resume driving the car when you feel safe and comfortable behind the wheel. No sexual activity as instructed. Wound care If you have a bandage, leave it on, and keep dry for 48-72 hours. After that time discard the outer bandage. If they are tapes on the skin under the out of bandage leave them in place. They will peel off in the next 7 to 10 days. Do Not Peel them off. You may shower the day after surgery. If there are tapes present on the skin, you may shower over them. Diet There are no dietary restrictions. Eat healthy, high-fiber foods. Drink 6 to 8 glasses of liquid each day. This will assist in keeping your bowels are regular. Pain management You may take Tylenol or acetaminophen or Ibuprofen (for example, Motrin, Advil etc.) from my pain prescription medication is ordered should be taken as prescribed for moderate to severe pain. Call MD for any of the following: Severe pain not relieved by medication Fever of 101 or higher Excessive bleeding or drainage on dressing Inability to urinate Disposition: HOME - Home Medications Comprehensive Discharge Medication List: Ambulatory Orders Albuterol Sulfate Inhaler - [Ventolin HFA Inhaler -] 1 - 2 inh IH Q4H PRN Montelukast Na [Singulair -] 10 mg PO HS 09/10/18 Vit Calc,Iron,Folic [ Vitamins] 1 each PO DAILY 09/10/18 Ferrous Sulfate [Feosol] 325 mg PO BID #60 tablet 09/23/18 Ibuprofen 600 mg PO Q6H PRN #30 tablet 09/23/18
[2018-09-24] MEDS: FERROUS SO4 325 MG TABLET (FP) PO SCH (08:22)
[2018-09-24 10:10] VITALS: BP 99/62; PULSE 91; TEMP 98.7
[2018-09-24] MEDS: PRENATAL VITAMINS W/ FOLIC ACID TABLET (FP) PO SCH (10:54)
== END 2018-09-24 12:15 | disposition home or self-care (01) | DRG 560 ==
LOC: JDEL 14:30 → MERGE 14:30 → JLDR 14:55 → J3W 09-22 02:56
PROVIDERS: ADMIT Obstetrics & Gynecology; ATTEND Obstetrics & Gynecology
PROC: 0HQ9XZZ Repair Perineum Skin, External Approach (ICD-10-PCS; principal; 2018-09-22)
PROC: 10E0XZZ Delivery of Products of Conception, External Approach (ICD-10-PCS; 2018-09-22)
DX: O99.02 Anemia complicating childbirth (principal); O70.0 First degree perineal laceration during delivery; D64.9 Anemia, unspecified; Z3A.37 37 weeks gestation of pregnancy; Z37.0 Single live birth
CPT/HCPCS: 36415; 59409; 80048; 85025; 85610; 85730; 86593; 86850; 86900; 86901; 90715

== ENCOUNTER 2020-10-28 18:28 | Emergency (ER) | payer OTHER ==
[2020-10-28 19:32] VITALS: TEMP 97.8; BMI 18.9
[2020-10-28 20:48] LABS: BASO % 0.4 % (0-2.0); EOS % 0.8 % (0-4.5); HEMATOCRIT 39.2 % (32.4-45.2); HEMOGLOBIN 13.1 GM/dL (10.7-15.3); LYMPH % 14.4 % (8-40); MCHC 33.5 g/dl (32.0-36.0); MEAN CELL VOLUME 83.6 fl (80-96); MONO % 3.1 % (3.8-10.2); NEUT % 81.3 % (42.8-82.8); PLATELET COUNT 164 K/MM3 (134-434); RBC 4.69 M/mm3 (3.60-5.2); RDW 13.6 % (11.6-15.6); WHITE BLOOD COUNT 7.7 K/mm3 (4.0-10.0)
[2020-10-28 21:07] LABS: POTASSIUM 3.7 mmol/L (3.5-5.1)
[2020-10-28 21:09] LABS: ALBUMIN 4.7 g/dl (3.4-5.0); CALCIUM 9.7 mg/dL (8.5-10.1)
[2020-10-28 21:10] LABS: BLOOD UREA NITROGEN 10.3 mg/dL (7-18)
[2020-10-28 21:12] LABS: CREATININE 0.7 mg/dL (0.55-1.3)
[2020-10-28 21:14] LABS: BILIRUBIN,TOTAL 0.4 mg/dL (0.2-1); TOT PROT 7.9 g/dl (6.4-8.2)
[2020-10-28 21:40] VITALS: BP 115/62; PULSE 93
== END 2020-10-28 21:43 | disposition home or self-care (01) ==
LOC: JER 18:28
DX: F41.9 Anxiety disorder, unspecified (principal)
CPT/HCPCS: 70450-TC; 80053; 85025; 85379; 93005; 93010; 99284-25

== ENCOUNTER 2021-08-21 20:01 | Emergency (ER) | payer OTHER ==
[2021-08-21 20:24] VITALS: BP 101/70; PULSE 91; TEMP 98.8; BMI 19.5
[2021-08-21] MEDS ORDERED: MAG HYDROX/AL HYDROX/SIMETH 30 ML UNIT-DOSE CUP PO ONE (21:38)
[2021-08-21] MEDS ORDERED: MAG HYDROX/AL HYDROX/SIMETH 30 ML UNIT-DOSE CUP ONE (21:49)
[2021-08-21 22:29] LABS: BASO % 0.5 % (0-2.0); EOS % 2.5 % (0-4.5); HEMOGLOBIN 13.4 GM/dL (10.7-15.3); LYMPH % 27.9 % (8-40); MCH 27.7 pg (25.7-33.7); MCHC 33.6 g/dl (32.0-36.0); MEAN CELL VOLUME 82.3 fl (80-96); MEAN PLT VOLUME 8.3 fl (7.5-11.1); MONO % 5.7 % (3.8-10.2); NEUT % 63.4 % (42.8-82.8); PLATELET COUNT 159 10^3/uL (134-434); RBC 4.85 M/mm3 (3.60-5.2); RDW 13.6 % (11.6-15.6); WHITE BLOOD COUNT 6.6 K/mm3 (4.0-10.0)
[2021-08-21 22:49] LABS: CHLORIDE 105 mmol/L (98-107); SODIUM 138 mmol/L (136-145)
[2021-08-21 22:52] LABS: ALBUMIN 4.6 g/dl (3.4-5.0); ANION GAP 8 MMOL/L (8-16); BLOOD UREA NITROGEN 12.1 mg/dL (7-18); CO2 25 mmol/L (21-32)
[2021-08-21 22:53] LABS: GLUCOSE,RANDOM 74 mg/dL (74-106)
[2021-08-21 22:55] LABS: SGOT/AST 15 U/L (15-37); SGPT/ALT 16 U/L (13-61)
[2021-08-21 22:56] LABS: CREATININE 0.7 mg/dL (0.55-1.3)
[2021-08-21 22:57] LABS: BILIRUBIN,TOTAL 0.7 mg/dL (0.2-1); TOT PROT 8.2 g/dl (6.4-8.2)
[2021-08-21 22:58] LABS: ALK PHOS 51 U/L (45-117)
== END 2021-08-21 23:10 | disposition home or self-care (01) ==
LOC: JERFT 20:01
DX: R07.9 Chest pain, unspecified (principal)
CPT/HCPCS: 36415; 71046-TC-FY; 80053; 82550; 84484; 85025; 93005; 93010; 99285-25

== ENCOUNTER 2022-10-12 17:58 | Emergency (ER) | payer OTHER ==
[2022-10-12 18:11] VITALS: BP 105/71; PULSE 144; RESP 16; TEMP 102.3; BMI 22.4
[2022-10-12] MEDS ORDERED: IBUPROFEN 100 MG/5 ML UNIT DOSE CUPS PO ONE (18:37)
[2022-10-12] MEDS ORDERED: ALBUTEROL SO4 2.5/IPRATROPIUM 0.5 INH SOL 3 ML VIAL.NEB. NEB ONE ×2 (18:37→18:48)
[2022-10-12] MEDS ORDERED: ACETAMINOPHEN 160 MG/5 ML *Children Solution PO ONE (18:37)
[2022-10-12] MEDS ORDERED: ACETAMINOPHEN 160 MG/5 ML 473ML BULK BOTTLE ONE (18:48)
[2022-10-12] MEDS ORDERED: IBUPROFEN 100 MG/5 ML UNIT DOSE CUPS ONE (18:48)
== END 2022-10-12 19:00 | disposition home or self-care (01) ==
LOC: JER 17:58
PROC: 3E0F7GC Introduction of Other Therapeutic Substance into Respiratory Tract, Via Natural or Artificial Opening (ICD-10-PCS; principal; 2022-10-12)
DX: J40 Bronchitis, not specified as acute or chronic (principal)
CPT/HCPCS: 0241U-QW; 99284-25

== ENCOUNTER 2023-12-10 04:08 | Emergency (ER) | payer OTHER ==
[2023-12-10 04:13] VITALS: BMI 23.4
[2023-12-10] MEDS ORDERED: SODIUM CHLORIDE 0.9% 500 ML INFUS.BAG IV ONE ×2 (04:25→06:33)
[2023-12-10] MEDS ORDERED: FAMOTIDINE 20 MG/50 ML IVPB 20 MG/50 ML MG IVPB ONE ×2 (04:25→05:04)
[2023-12-10] MEDS ORDERED: ACETAMINOPHEN 1000 MG/100 ML BAG IVPB ONE (04:25)
[2023-12-10] MEDS ORDERED: ONDANSETRON 4 MG/2 ML VIAL IVPUSH ONE (04:25)
[2023-12-10] MEDS ORDERED: ONDANSETRON 4 MG/2 ML VIAL ONE (04:30)
[2023-12-10] MEDS ORDERED: ACETAMINOPHEN INJECTION 100 ML IVPB ONE (04:30)
[2023-12-10 04:49] LABS: BASO % 0.3 % (0-2.0); EOS % 0.5 % (0-4.5); HEMATOCRIT 41.2 % (32.4-45.2); HEMOGLOBIN 13.7 GM/dL (10.7-15.3); LYMPH % 6.9 % (8-40); MCH 26.9 pg (25.7-33.7); MCHC 33.2 g/dl (32.0-36.0); MEAN CELL VOLUME 81.1 fl (80-96); MONO % 3.6 % (3.8-10.2); NEUT % 88.7 % (42.8-82.8); PLATELET COUNT 205 10^3/uL (134-434); RBC 5.08 M/mm3 (3.60-5.2); RDW 13.6 % (11.6-15.6); WHITE BLOOD COUNT 12.9 K/mm3 (4.0-10.0)
[2023-12-10 05:07] LABS: POTASSIUM 3.9 mmol/L (3.5-5.1)
[2023-12-10 05:09] LABS: CALCIUM 10.2 mg/dL (8.5-10.1)
[2023-12-10 05:10] LABS: ALBUMIN 4.6 g/dl (3.4-5.0); BLOOD UREA NITROGEN 15.1 mg/dL (7-18)
[2023-12-10 05:13] LABS: CREATININE 0.8 mg/dL (0.55-1.3)
[2023-12-10 05:14] LABS: TOT PROT 8.2 g/dl (6.4-8.2)
[2023-12-10 05:22] LABS: BILIRUBIN,TOTAL 0.7 mg/dL (0.2-1)
[2023-12-10] MEDS ORDERED: METOCLOPRAMIDE HCL INJECTION 10 MG/2 ML VIAL IVPUSH ONE (06:33)
[2023-12-10] MEDS ORDERED: METOCLOPRAMIDE HCL INJECTION 10 MG/2 ML VIAL ONE (06:34)
[2023-12-10 08:09] LABS: EPI CELLS >36 /uL (0-25.1); HYALINE CASTS 1 /uL (0-3.1); URINE APPEARANCE CLEAR; URINE BACTERIA 4655 /uL (0-1359); URINE BILIRUBIN NEGATIVE (NEGATIVE); URINE COLOR YELLOW; URINE GLUCOSE (UA) NEGATIVE (NEGATIVE); URINE KETONE 3+ (NEGATIVE); URINE LEUK ESTERASE NEGATIVE (NEGATIVE); URINE NITRITE NEGATIVE (NEGATIVE); URINE PROTEIN NEGATIVE (NEGATIVE)
[2023-12-10 08:28] LABS: URINE RBC 39 /uL (0-23.9); URINE WBC 139 /uL (0-25.8)
[2023-12-10 08:45] VITALS: BP 105/66; PULSE 95; RESP 18; TEMP 97.5
== END 2023-12-10 08:51 | disposition home or self-care (01) ==
LOC: JER 04:08
PROC: 3E033GC Introduction of Other Therapeutic Substance into Peripheral Vein, Percutaneous Approach (ICD-10-PCS; principal; 2023-12-10)
PROC: 3E033GC Introduction of Other Therapeutic Substance into Peripheral Vein, Percutaneous Approach (ICD-10-PCS; 2023-12-10)
PROC: 3E033GC Introduction of Other Therapeutic Substance into Peripheral Vein, Percutaneous Approach (ICD-10-PCS; 2023-12-10)
PROC: 3E033NZ Introduction of Analgesics, Hypnotics, Sedatives into Peripheral Vein, Percutaneous Approach (ICD-10-PCS; 2023-12-10)
DX: R11.2 Nausea with vomiting, unspecified (principal); R10.13 Epigastric pain; R19.7 Diarrhea, unspecified; Z20.822 Contact with and (suspected) exposure to COVID-19
CPT/HCPCS: 0241U-QW; 36415; 80053; 81003; 83690; 83735; 85025; 87086; 99284-25

== ENCOUNTER 2025-03-26 00:07 | Emergency (ER) | payer OTHER ==
[2025-03-26 00:37] VITALS: BP 105/74; PULSE 101; RESP 19; TEMP 98.6; BMI 26.7
[2025-03-26] MEDS ORDERED: hydrOXYzine PAMOATE 50 MG CAPSULE (FP) ONE (00:45)
[2025-03-26] MEDS ORDERED: ONDANSETRON *ODT* 4 MG TABLET ONE (00:45)
[2025-03-26] MEDS: ONDANSETRON *ODT* 4 MG TABLET SL ONE (00:46)
[2025-03-26] MEDS: hydrOXYzine HCL 50 MG TABLET PO ONE (01:13)
[2025-03-26] MEDS: hydrOXYzine PAMOATE 50 MG CAPSULE (FP) PO ONE (01:13)
== END 2025-03-26 03:43 | disposition home or self-care (01) ==
LOC: JER 00:07
DX: F41.9 Anxiety disorder, unspecified (principal); R11.2 Nausea with vomiting, unspecified; R00.0 Tachycardia, unspecified; R06.82 Tachypnea, not elsewhere classified
CPT/HCPCS: 93005; 93010; 99283-25; Q0162